=== PATIENT | male | born 1960 | race American Indian/Alaskan Native ===

== ENCOUNTER 2016-11-15 09:41 | Emergency (ER) | payer MEDICARE, MEDICAID ==
[2016-11-15 09:41] VITALS: BMI 25.6
--- NOTE | 2016-11-15 10:06 | ED PDOC ---
HPI: General Adult Time Seen by Provider: 11/15/16 09:56 Chief Complaint (Nursing): Vascular Access Device Problem Chief Complaint (Provider): Vascular Access Device Problem History Per: Patient History/Exam Limitations: no limitations Onset/Duration Of Symptoms: Days (x 1) Current Symptoms Are (Timing): Better Additional Complaint(s): Davy is a 56 y/o male who presents to the ED for evaluation of bleeding from shunt on the left upper extremity. Patient received dialysis today, and when he got home he noticed the bleeding. He denies trauma to the area. Patient was unable to stop the bleeding at home, prompting EMS call. EMS applied bandage in the field. PMD: Unknown Past Medical History Reviewed: Historical Data, Nursing Documentation, Vital Signs - Medical History PMH: Anemia, CAD, CHF, COPD, HTN, End Stage Renal Disease (dialysis M/W/F), Chronic Kidney Disease - Surgical History Other surgeries: Nephrectomy, AV shunt placement, Vascular access device - Family History Family History: States: Unknown Family Hx - Social History Current smoker - smoking cessation education provided: Yes (heavy) Alcohol: None Drugs: Denies - Immunization History Hx Tetanus Toxoid Vaccination: No Hx Influenza Vaccination: Yes Hx Pneumococcal Vaccination: Yes - Home Medications Home Medications: Ambulatory Orders Medication Instructions Recorded Albuterol HFA [Ventolin HFA 90 2 puff IH Q4 PRN #1 puff 03/04/14 mcg/actuation (8 g)] amLODIPine [Norvasc] 10 mg PO DAILY #0 tab 03/04/14 cloNIDine [Catapres] 0.3 mg PO BID #60 tab 03/04/14 Carvedilol [Coreg] 25 mg PO BID 07/25/14 Atorvastatin [Lipitor] 10 mg PO HS 07/21/15 Calcium Acetate [Phoslo] 2,001 mg PO TID 07/21/15 Cinacalcet [Sensipar] 30 mg PO DAILY 07/21/15 Multivit-Min/FA/Lycopen/Lutein 1 tab PO DAILY 07/21/15 [Centrum Silver Tablet] [place]-3 Acid Ethyl Esters [Lovaza] 1 gm PO BID 07/21/15 Omeprazole [Prilosec] 20 mg PO DAILY 07/21/15 - Allergies Allergies/Adverse Reactions: Allergies Allergy/AdvReac Type Severity Reaction Status Date / Time No Known Allergies Allergy Verified 11/15/16 09:43 Review of Systems ROS Statement: Except As Marked, All Systems Reviewed And Found Negative Musculoskeletal: Positive for: Other (Bleeding from shunt on left upper extremity) Physical Exam - Reviewed Nursing Documentation Reviewed: Yes Vital Signs Reviewed: Yes - Physical Exam Appears: Positive for: Non-toxic, No Acute Distress Head Exam: Positive for: ATRAUMATIC, NORMAL INSPECTION, NORMOCEPHALIC Skin: Positive for: Normal Color, Warm, Dry Extremity: Positive for: Normal ROM, Other (Upon removal of bandage from EMS, bleeding has stopped. L arm Shunt appears intact.) Neurologic/Psych: Positive for: Alert, Oriented Medical Decision Making Medical Decision Making: Time: 10:00 Initial Plan: --Informed patient of plan to order CBC and keep patient for observation to check for rebleed --Patient is refusing vitals and blood draw, and reports he will leave AMA This patient is choosing to leave against medical advice. The EP has personally explained to the pt that choosing to do so may result in permanent bodily harm or . The EP discussed at great length that without further evaluation and monitoring there may be unforeseen circumstances and/or deterioration causing permanent bodily harm or as a result of their choice. The pt verbalized these risks back to the physician in laymans terms. The pt is alert , oriented, and shows the mental capacity to make clear decisions regarding the pts health care at this time. The pt continues to wish to leave against medical advice. In light of the pts decision to leave AMA, follow-up has been arranged and the pt is aware of the importance of following up as instructed. The pt has been advised that they should return to the ED immediately if they change their mind at any time, or if thier condition begins to change or worsen in any way. Scribe Attestation: Documented by Roz Church, acting as a scribe for Jeffrey Elizondo MD Provider Scribe Attestation: All medical record entries made by the Scribe were at my direction and personally dictated by me. I have reviewed the chart and agree that the record accurately reflects my personal performance of the history, physical exam, medical decision making, and the department course for this patient. I have also personally directed, reviewed, and agree with the discharge instructions and disposition. Disposition - Clinical Impression Clinical Impression: Bleeding from dialysis shunt, Left against medical advice - Patient ED Disposition Is Patient to be Admitted: No Counseled Patient/Family Regarding: Diagnosis, Need For Followup - Disposition Disposition: Against Medical Advice Disposition Time: 10:00 Condition: IMPROVED Additional Instructions: follow up with your doctor as soon as possible return to the ED with any worsening or concerning symptoms or if you would like to continue your workup Instructions: Against Medical Advice (ED), End Stage Kidney Disease (ED) Forms: [employer] ([place])
== END 2016-11-15 10:09 | disposition left against medical advice (07) ==
LOC: H.ER 09:41
DX: T82.838A Hemorrhage due to vascular prosthetic devices, implants and grafts, initial encounter (principal); Y84.1 Kidney dialysis as the cause of abnormal reaction of the patient, or of later complication, without mention of misadventure at the time of the procedure; Y92.89 Other specified places as the place of occurrence of the external cause

== ENCOUNTER 2017-05-30 08:49 | Emergency (ER) | payer MEDICARE, MEDICAID ==
[2017-05-30 08:49] VITALS: BMI 16.7
[2017-05-30 09:03] VITALS: BP 176/109; PULSE 77; RESP 21; TEMP 98.1; O2SAT 97
== END 2017-05-30 09:22 | disposition left against medical advice (07) ==
LOC: H.ER 08:49
DX: Z02.89 Encounter for other administrative examinations (principal)